=== PATIENT | male | born 1945 | race Caucasian/White ===

== ENCOUNTER 2016-12-31 07:55 | Day surgery (SDC) | payer MEDICARE, OTHER ==
[~2016-12-31 07:55] MED LIST: CALCIUM600 MG PO; CEROVITE ADVANC1 TAB PO; MELOXICAM7.5 MG PO; VITAMIN C1000 MG PO; VITAMIN D31000 UNI1 PO; VITAMIN E1000 UNI1 PO
== END 2016-12-31 15:56 | disposition short-term general hospital (02) ==
LOC: CLPAIN 07:55 → SURGOP 07:55 → EDSTATUS 09:08 → CLPAIN 12:42 → SURGOP 15:56
PROC: 3E0U33Z Introduction of Anti-inflammatory into Joints, Percutaneous Approach (ICD-10-PCS; principal; 2016-12-31)
PROC: 3E0U3BZ Introduction of Anesthetic Agent into Joints, Percutaneous Approach (ICD-10-PCS; 2016-12-31)
PROC: BR16YZZ Fluoroscopy of Lumbar Facet Joint(s) using Other Contrast (ICD-10-PCS; 2016-12-31)
DX: M47.816 Spondylosis without myelopathy or radiculopathy, lumbar region (principal); M48.02 Spinal stenosis, cervical region; E11.9 Type 2 diabetes mellitus without complications; G56.00 Carpal tunnel syndrome, unspecified upper limb; R10.9 Unspecified abdominal pain; Z79.899 Other long term (current) drug therapy; Z79.52 Long term (current) use of systemic steroids
CPT/HCPCS: J1040